=== PATIENT | female | born 1990 | race Caucasian/White ===

== ENCOUNTER 2018-09-05 07:01 | Emergency (ER) | payer MEDICAID ==
[~2018-09-05] VITALS: Ht 157.5 cm; Wt 50.0 kg
[2018-09-05] MEDS ORDERED: SODIUM CHLORIDE 0.9% 1,000 ML IV ONE (07:31)
[2018-09-05] MEDS ORDERED: KETOROLAC 30MG/ML VIAL IV STA (07:31)
[2018-09-05] MEDS ORDERED: ONDANSETRON HCL 4MG/2ML INJ IV STA (07:31)
[2018-09-05 08:35] LABS: HEMATOCRIT. 44.6 % (36.0-48.0); HEMOGLOBIN. 15.1 g/dL (12.0-16.0); MEAN CORPUSCULAR HEMOGLOBIN 30.4 pg (28.0-32.0); MEAN CORPUSCULAR VOLUME 89.4 fL (81.0-99.0); MEAN PLATELET VOLUME 9.5 fl (7.4-10.4); PLATELET 253 x1000/uL (130-400); RED BLOOD CELL COUNT 4.98 mill/uL (4.2-5.4)
[2018-09-05 08:38] LABS: CHLORIDE 106 mEq/L (98-107)
[2018-09-05 08:47] LABS: CLARITY URINE CLOUDY (CLEAR); COLOR URINE AMBER (YELLOW); KETONES URINE 4+ (NEGATIVE); LEUKOCYTE ESTERASE URINE 3+ (NEGATIVE); NITRITE URINE NEGATIVE (NEGATIVE); OCCULT BLOOD URINE 2+ (NEGATIVE); PH URINE 6.5 (4.5-8.0); PROTEIN URINE 1+ (NEGATIVE); SPECIFIC GRAVITY URINE 1.035 (1.005-1.030); UROBILINOGEN URINE 0.2 E.U./dL (0.2-1.0)
[2018-09-05 09:07] LABS: PLATELET ESTIMATE NORMAL
[2018-09-05] MEDS ORDERED: CEFTRIAXONE SODIUM 1 G/VIAL IM ONE (09:15)
[2018-09-05] MEDS ORDERED: SODIUM CHLORIDE 0.9% 500 ML IV ONE (09:15)
[2018-09-05] MEDS ORDERED: LIDOCAINE HCL 1% 20ML VIAL (Pyxis) INJ INFIL ONE (09:15)
[2018-09-05 09:26] VITALS: BP 103/62
== END 2018-09-05 10:09 | disposition home or self-care (01) ==
LOC: ER 07:01
DX: N39.0 Urinary tract infection, site not specified (principal); R10.13 Epigastric pain; D72.829 Elevated white blood cell count, unspecified
CPT/HCPCS: 36415; 80053; 81003; 81025; 83690; 85025; 87086; 96361; 96372; 96374; 96375; 99283; J0696; J1885; J2405; J3490; J7030; J7040